=== PATIENT | male | born 1970 | race Caucasian/White ===

== ENCOUNTER → 2020-02-18 13:54 | Outpatient (CLI) | payer OTHER, SELFPAY ==
--- NOTE | ~2020-02-18 | XR_ITS ---
XR abdomen/kub 1V 02/18/2020 14:46 INDICATION: Gross hematuria TECHNIQUE: KUB COMPARISON: CT dated 08/24/2014 FINDINGS: Bowel gas pattern is normal. There is no evidence of free air, mass, organomegaly, ascites or obstruction. No abnormal calculi are seen. There are pelvic phleboliths. The bones appear intact . IMPRESSION: 1: No acute abdominal abnormality identified. Reviewed, dictated and finalized at location A.
--- NOTE | ~2020-02-18 | CT_ITS ---
EXAMINATION: CT abdomen pelvis wo/w con DATE: 02/18/2020 14:46 INDICATION: Gross hematuria TECHNIQUE: Computed tomography (CT) of the abdomen and pelvis was performed without intravenous contr ast. CT of the abdomen and pelvis was then performed with a total of 130 mL Omnipaque 350 intravenous contrast using a double-bolus technique for simultaneous opacification of the renal parenchyma and r enal collecting system. The dose-length product (DLP) was 2289.07 mGy-cm. Automated exposure control and iterative reconstruction technique were employed. COMPARISON: 08/24/2014 FINDINGS: Minimal dependent atelectasis is present in the lung bases. The heart size is normal. Stabl e calcified and noncalcified nodules of the visualized lower lobes are consistent with old granulomat ous disease. The liver is diffusely low in attenuation when compared with the spleen, consistent with hepatic steatosis. The spleen, pancreas, gallbladder, and adrenal glands are normal. The kidneys are unremarkable. No stones are identified in the kidneys, ureters, or bladder. There is no hydronephros is or hydroureter. No suspicious renal or urothelial lesion is identified. Again noted are bilateral L5 pars defects with grade 1 anterolisthesis of L5 on S1. IMPRESSION: 1. No CT correlate for the patient's symptoms. 2. Diffuse hepatic steatosis. Reviewed, dictated and finalized at location B.
[2020-02-18 14:24] LABS: Estimated Glomerular Filt Rate > 60
== END ==
PROVIDERS: PCP Family Medicine Adolescent Medicine; Visit Provider Urology
DX: R31.0 Gross hematuria (principal); K76.0 Fatty (change of) liver, not elsewhere classified
CPT/HCPCS: 36415; 74018; 74178; Q9967

== ENCOUNTER → 2021-10-16 02:37 | Outpatient (CLI) | payer OTHER, SELFPAY ==
[2021-10-16 16:37] LABS: SARS-CoV-2 RNA PCR Negative
== END ==
PROVIDERS: PCP Family Medicine Adolescent Medicine; Visit Provider Internal Medicine Gastroenterology
DX: Z01.812 Encounter for preprocedural laboratory examination (principal); Z20.822 Contact with and (suspected) exposure to COVID-19
CPT/HCPCS: C9803; U0003; U0005

== ENCOUNTER 2021-10-19 00:54 | Day surgery (SDC) | payer OTHER, SELFPAY ==
[2021-10-05 14:47] VITALS: BMI 29.2
--- NOTE | 2021-10-19 09:07 | WPDANESEPPF ---
Anes - Initial Pre Proc Eval Procedure: Operation Date: 10/19/21 12:30 Proposed Procedures p Screening Colonoscopy - Ray Cunningham MD Date/Time: 10/19/21 09:07 Surgeon: Ray Cunningham MD Pre Op Diagnosis: neoplasm screening Patient Data Age: 51 Gender: M Height: 1.88 m Weight: 103.5 kg Allergies Allergy/AdvReac Type Severity Reaction Status Date / Time clarithromycin Allergy Mild Unknown Verified 10/19/21 11:17 Home Medications Medication Instructions Recorded Confirmed Type clonazepam 1 mg tablet 1 mg PO DAILY 11/23/19 10/19/21 History Patient hx anesthesia problems: none Family hx anesthesia problems: none Results Review: All pre-operative results and documents have been reviewed as part of the pre-operative evaluation. REPLACED BY [facility] Past Medical History Medical History (Updated 10/19/21 @ 11:33 by Ray Cunningham MD) Anxiety MVP (mitral valve prolapse) Sprain of finger of left hand Sprain of right middle finger Family History Family History (Updated 11/23/19 @ 11:09 by Anahy Sanchze RT(R)) Other Cancer Social History Social History (Updated 11/23/19 @ 11:10 by Anahy Sanchez RT(R)) Smoking status: Never smoker Alcohol intake: former Drinks per week: 11 Substance use type: does not use Living arrangements: with family Spiritual care concerns: No Anes - Eval Final PreProcedure Day of Procedure 10/19/21 09:07 Patient weight: overweight Heart: regular rate and rhythm Lungs: clear to auscultation and normal air movement Airway: Mallampati scale class II Neurological: alert and oriented Last oral intake: >/= 8 hours ASA classification: II Emergent: no Anesthetic plan: proceed Anesthesia type and monitoring: general GIVS Results Review: All pre-operative results and documents have been reviewed as part of the pre-operative evaluation. Informed Consent: The patient's anesthetic plan and its attendant risks and benefits were discussed with the patient/family/POA. Questions were solicited and answers provided to the satisfaction of the patient/family/POA.
[2021-10-19 11:18] VITALS: BMI 29.0
[2021-10-19] MEDS: LACTATED RINGERS 1,000 ML 150 ML IV CONT (11:32)
--- NOTE | 2021-10-19 11:32 | WPDGICN ---
Assessment and Plan Assessment and plan (1) Encounter for screening colonoscopy: Code(s): Z12.11 - Encounter for screening for malignant neoplasm of colon Status: Acute Assessment and Plan: Patient presents for screening colonoscopy. Further recommendations will be given after endoscopy. He appears to be at average risk for colon polyps. GI Consult Note Consult date/time: 10/19/21 11:32 HPI: Joe Leslie is a 51 year old male Presents for screening colonoscopy. Patient reports that his current weight appetite and bowel movements are normal. He denies abdominal pain. He has had no bleeding. Family history is noncontributory. Patient desires neoplasia screening. Patient recently has seen his family doctor because of complaints of ongoing fatigue. Family history is significant his father had prostate cancer mother had breast cancer but there is no family history of polyps or cancer the of the colon that he is aware of. Review of Systems Review of Systems: All systems reviewed & are unremarkable except as noted in HPI and below PMFSH Past Medical History Medical History (Updated 10/19/21 @ 11:33 by Ray Cunningham MD) Anxiety MVP (mitral valve prolapse) Sprain of finger of left hand Sprain of right middle finger Family History Family History (Updated 11/23/19 @ 11:09 by Anahy Sanchez RT(R)) Other Cancer Social History Social History (Updated 11/23/19 @ 11:10 by Anahy Sanchez RT(R)) Smoking status: Never smoker Alcohol intake: former Drinks per week: 11 Substance use type: does not use Living arrangements: with family Spiritual care concerns: No Meds Home Medications and Allergies Home Medications Medication Instructions Recorded Confirmed Type clonazepam 1 mg tablet 1 mg PO DAILY 11/23/19 10/19/21 History Allergies Allergy/AdvReac Type Severity Reaction Status Date / Time clarithromycin Allergy Mild Unknown Verified 10/19/21 11:17 Exam Narrative: Physical exam reveals patient be alert. Vital signs stable. HEENT exam is unremarkable. Patient is anicteric. Lungs are clear to auscultation and percussion. Heart is without murmur or extra sounds. Abdominal exam bowel sounds are present soft nontender with no organomegaly. Digital external rectal exam is normal.
[2021-10-19 12:18] VITALS: BP 104/77; PULSE 74; RESP 19; O2SAT 97
[2021-10-19 12:28] VITALS: BP 113/82; PULSE 71; RESP 14; O2SAT 100
[2021-10-19 12:38] VITALS: BP 122/90; PULSE 77; RESP 20; O2SAT 100
== END 2021-10-19 13:02 | disposition home or self-care (01) ==
PROVIDERS: PCP Family Medicine Adolescent Medicine; Visit Provider Internal Medicine Gastroenterology
PROC: 0DJD8ZZ Inspection of Lower Intestinal Tract, Via Natural or Artificial Opening Endoscopic (ICD-10-PCS; CPT 45378; principal; 2021-10-19 12:30)
DX: Z12.11 Encounter for screening for malignant neoplasm of colon (principal); K64.8 Other hemorrhoids; I34.1 Nonrheumatic mitral (valve) prolapse; F41.9 Anxiety disorder, unspecified
CPT/HCPCS: 45378; C9803; J2704; J7120; U0003; U0005